=== PATIENT | male | born 1965 | race Caucasian/White ===

== ENCOUNTER → 2017-09-19 | Outpatient (CLI) | payer OTHER ==
[~2017-09-19] MED LIST: IOPAMIDOL (ISOVUE-370) 150 ML BTL IV ONE
== END ==
LOC: FIMAGING 09:28
PROVIDERS: ATTEND Internal Medicine Cardiovascular Disease
DX: I25.10 Atherosclerotic heart disease of native coronary artery without angina pectoris (principal); I71.2 Thoracic aortic aneurysm, without rupture
CPT/HCPCS: Q9967

== ENCOUNTER 2017-09-20 09:31 | Observation (INO) | payer OTHER ==
[2017-09-20] MEDS ORDERED: NITROGLYCERIN 2% 1 GM PACKET TP ONE (09:37)
[2017-09-20] MEDS ORDERED: ONDANSETRON 4 MG/2 ML VIAL IVP ONE (09:37)
[2017-09-20] MEDS ORDERED: ASPIRIN 81 MG CHEWABLE TAB PO ONE (09:37)
--- NOTE | 2017-09-20 09:37 | EDPHY ---
H & P Stated Complaint: cp x 1 week/work up by jordy yesterday Time Seen by Provider: 09/20/17 09:37 - Personal History Current Tetanus/Diphtheria Vaccine: Yes - Medical/Surgical History Hx Asthma: No Hx Chronic Respiratory Disease: No Hx Diabetes: No Hx Cardiac Disease: No Hx Renal Disease: No Hx Cirrhosis: No Hx Alcoholism: No Hx HIV/AIDS: No Hx Splenectomy or Spleen Trauma: No Other PMH: denies - Social History Smoking Status: Never smoked Constitutional: Initial Vital Signs Temperature (C) 37 C 09/20/17 09:32 Heart Rate 74 09/20/17 09:32 Respiratory Rate 18 09/20/17 09:32 Blood Pressure 138/101 H 09/20/17 09:32 O2 Sat (%) 95 09/20/17 09:32 O2 Delivery Mode Room Air Allergies/Adverse Reactions: No Known Allergies Allergy (Unverified 09/20/17 09:31) Home Medications: Medication Instructions Recorded Crestor 09/20/17 Metoprolol Succinate 09/20/17 Supplements 09/20/17 Medical Decision Making ED Course/Re-evaluation: CHIEF COMPLAINT: Chest pain HISTORY OF PRESENT ILLNESS: This patient is a 52 year old male complaining of chest pain. He was referred to the emergency department by his online advertising manager, Dr. Pope. The patient's chest pain has been ongoing for one week and is fairly constant but waxes and wanes. He was exercising last Monday and had to quit early which is unusual for him. He had a recent CTA with Dr. Pope which revealed considerable calcium buildup in the RCA and LAD. Plan to admit for cardiac catheterization. The patient's last PO at dinner last night. He had a cup of coffee this morning but no other food. He generally takes 2 81mg ASA, but not daily. Additionally the patient endorses recent weight loss of 50 lbs. He had chest pain in the past but this had not occurred since his weight loss. He denies fever, shortness of breath, vomiting, or other associated symptoms. REVIEW OF SYSTEMS: A 10 point review of systems was performed and is negative with the exception of the elements mentioned in the history of present illness. PHYSICAL EXAM: HR, BP, O2 Sat, RR. Temp noted General Appearance: Alert, well hydrated, appropriate, and non-toxic appearing. Head: Atraumatic without scalp tenderness or obvious injury Eyes: Pupils equal, round, reactive to light and accommodation, EOMI, no trauma , no injection. Ears: Clear bilaterally, no perforation, normal landmarks Nose: Atraumatic, no rhinorrhea, clear. Throat: There is no erythema or exudates, no lesions, normal tonsils, mucus membranes moist. Neck: Supple, 2+ carotid upstroke, nontender, no lymphadenopathy. Respiratory: No retractions, no distress, no wheezes, and no accessory muscle use. Lungs are clear to auscultation bilaterally. Cardiovascular: Regular rate and rhythm, no murmurs, rubs, or gallops. Bilateral carotid, radial, dorsalis pedis, and posterior tibial pulses intact. Good capillary refill all extremities. Gastrointestinal: Abdomen is soft, nontender, non-distended, no masses, no rebound, no guarding, no peritoneal signs. Musculoskeletal: Normal active ROM of all extremities, atraumatic. Neurological: Alert, appropriate, and interactive. The patient has normal DTRs and non-focal cranial nerves, motor, sensory, and cerebellar exam. Skin: No rashes, good turgor, no nodules on palpation. Past medical history: Denies. Past surgical history: Noncontributory Family history: Noncontributory Social history: . Lives in [place]. Does not abuse tobacco, drugs, or alcohol. DIAGNOSTICS/PROCEDURES/CRITICAL CARE TIME: The 12 lead EKG was interpreted by myself. See hard copy and/or "tracemaster" electronic copy for interpretation. DIFFERENTIAL DIAGNOSIS: The differential diagnosis for the patient's chest pain included but was not limited to myocardial ischemia, pulmonary embolus, chest wall pain, pleural inflammation, and pulmonary infectious causes. MEDICAL DECISION MAKIN52 y/o male presents with one week history of chest pain. Spoke with Dr. Pope prior to the patient's arrival. Reviewed CT angiography. Blockages present in RCA and LAD. Plan for EKG, labs including CBC, chemistries, troponin, BNP. Plan to administer 1" nitro paste, 325mg PO aspirin, and 4mg IV Zofran for symptom relief. 10:15 Troponin negative. WBC elevated at 18,000. 11:[address] Pope, online advertising manager. He will evaluate the patient at bedside and then transfer him to the laboratory assistant for outpatient cardiac catheterization. 11:[address] Pope, online advertising manager. Patient's EKG shows more prominent t- wave inversion than prior one day ago. Plan to admit for catheterization as above. - Data Points Laboratory Results: Laboratory Results 09/20/17 09:45 18 09:45 09/20/17 09/20/17 09:45 09:45 WBC 17.63 10^3/uL H 10^3/uL (3.80-9.50) RBC 5.14 10^6/uL 10^6/uL (4.40-6.38) Hgb 16.0 g/dL g/dL (13.7-17.5) Hct 45.5 % % (40.0-51.0) MCV 88.5 fL fL (81.5-99.8) MCH 31.1 pg pg (27.9-34.1) MCHC 35.2 g/dL g/dL (32.4-36.7) RDW 12.6 % % (11.5-15.2) Plt Count 318 10^3/uL 10^3/uL (150-400) MPV 10.6 fL fL (8.7-11.7) Neut % (Auto) 83.0 % H % (39.3-74.2) Lymph % (Auto) 9.9 % L % (15.0-45.0) [place] % (Auto) 6.5 % % (4.5-13.0) Eos % (Auto) 0.0 % L % (0.6-7.6) Baso % (Auto) 0.1 % L % (0.3-1.7) Nucleat RBC Rel Count 0.0 % % (0.0-0.2) Absolute Neuts (auto) 14.63 10^3/uL H 10^3/uL (1.70-6.50) Absolute Lymphs (auto) 1.75 10^3/uL 10^3/uL (1.00-3.00) Absolute Monos (auto) 1.14 10^3/uL H 10^3/uL (0.30-0.80) Absolute Eos (auto) 0.00 10^3/uL L 10^3/uL (0.03-0.40) Absolute Basos (auto) 0.02 10^3/uL 10^3/uL (0.02-0.10) Absolute Nucleated RBC 0.00 10^3/uL 10^3/uL (0-0.01) Immature Gran % 0.5 % % (0.0-1.1) Immature Gran # 0.09 10^3/uL 10^3/uL (0.00-0.10) Sodium 145 mEq/L mEq/L (135-145) Potassium 4.3 mEq/L mEq/L (3.3-5.0) Chloride 104 mEq/L mEq/L (97-110) Carbon Dioxide 23 mEq/l mEq/l (22-31) Anion Gap 18 mEq/L H mEq/L (8-16) BUN 22 mg/dL mg/dL (7-23) Creatinine 1.0 mg/dL mg/dL (0.7-1.3) Estimated GFR > 60 Glucose 116 mg/dL H mg/dL (70-100) Calcium 10.4 mg/dL mg/dL (8.5-10.4) Troponin I < 0.012 ng/mL ng/mL (0.000-0.034) NT-Pro-B Natriuret Pep 29 pg/mL pg/mL (0-125) Medications Given: Discontinued Medications Aspirin (Aspirin) 324 mg PO EDNOW ONE Stop: 09/20/17 09:38 Last Admin: 09/20/17 09:52 Dose: 324 mg Nitroglycerin (Nitro-Bid 2%) 1 inch TP EDNOW ONE Stop: 09/20/17 09:38 Last Admin: 09/20/17 09:53 Dose: 1 inch Ondansetron HCl (Zofran) 4 mg IVP EDNOW ONE Stop: 09/20/17 09:38 Last Admin: 09/20/17 09:52 Dose: 4 mg Departure - Departure Disposition: To OP Cath/Surgery Clinical Impression: Chest pain Qualifiers: Chest pain type: other chest pain Qualified Code(s): R07.89 - Other chest pain Condition: Fair Report Scribed for: Dani Espana Report Scribed by: Nuris Padilla Date of Report: 09/20/17 Time of Report: 11:22
--- NOTE | 2017-09-20 09:42 | CPEKG ---
Heart Rate: 72 RR Interval: 833 P-R Interval: 204 QRSD Interval: 100 QT Interval: 392 QTC Interval: 430 P [place]: 17 QRS [place]: -11 T Wave [place]: -21 EKG Severity - ABNORMAL ECG - EKG Impression: SINUS RHYTHM EKG Impression: NONSPECIFIC T ABNORMALITIES, INFERIOR LEADS Electronically Signed By: Dani Espana 20-Sep-2017 13:51:28
[2017-09-20 09:53] LABS: PLATELET COUNT 318 10^3/uL (150-400)
[2017-09-20] MEDS ORDERED: LIDOCAINE 1% 300 MG/30 ML SDV ONE (10:42)
[2017-09-20] MEDS ORDERED: fentaNYL 100 MCG/2 ML INJ ONE ×2 (10:43→11:54)
[2017-09-20] MEDS ORDERED: MIDAZOLAM 2 MG/2 ML VIAL ONE (10:43)
[2017-09-20] MEDS ORDERED: IOPAMIDOL (ISOVUE-370) 150 ML BTL IV ONE ×2 (10:43→12:35)
[2017-09-20] MEDS ORDERED: NITROGLYCERIN 1,500 MCG/15 ML VIAL MISC ONE ×2 (10:45→12:24)
[2017-09-20] MEDS ORDERED: TEMAZEPAM 15 MG CAP PO PRN ×2 (11:11→11:41)
[2017-09-20] MEDS ORDERED: diphenhydrAMINE 25 MG CAP PO ONE ×2 (11:11)
[2017-09-20] MEDS ORDERED: DIAZEPAM 5 MG TAB PO ONE ×2 (11:11)
[2017-09-20] MEDS ORDERED: ASPIRIN EC 325 MG TAB PO ONE ×2 (11:11)
[2017-09-20] MEDS ORDERED: NITROGLYCERIN 0.4 MG BTL SL PRN ×2 (11:11→11:41)
[2017-09-20] MEDS ORDERED: FAMOTIDINE 20 MG TAB PO ONE ×2 (11:11)
[2017-09-20] MEDS ORDERED: ACETAMINOPHEN 325 MG TAB PO PRN ×2 (11:11→11:41)
[2017-09-20 11:35] LABS: INR 0.94 (0.83-1.16); PROTIME(PATIENT) 12.8 SEC (12.0-15.0)
--- NOTE | 2017-09-20 11:41 | PDHPUP ---
History & Physical Update H&P update statement: This history and physical update is based on an assessment of the patient which was completed after admission or registration (within 24 hours), but prior to the surgery/procedure. H&P update: H&P reviewed & patient examined, no change in patient's condition since H&P completed
--- NOTE | 2017-09-20 11:42 | PDPROPOC ---
Sedation Plan of Care Sedation Plan of Care: vital signs stable, mental status noted, patient educated of risks, benefits, alternatives, patient can tolerate sedation ASA Classification: ASA 3 Planned drugs: fentanyl, midazolam, other (etomidate) Mallampati Score: Class 3 Mallampati Reference Image: Patient passed 3-3-2 rule?: Yes
--- NOTE | 2017-09-20 11:44 | PDHPUP ---
History & Physical Update H&P update statement: This history and physical update is based on an assessment of the patient which was completed after admission or registration (within 24 hours), but prior to the surgery/procedure. H&P update: changes noted (Patient presented to ED with Nitroglycerin responsive chest pain and more prominent T wave inversions inferiorly. Needs cardiac cath given CCS Class IV angina...)
[2017-09-20] MEDS ORDERED: ETOMIDATE 40 MG/20 ML INJ ONE (11:56)
--- NOTE | 2017-09-20 12:09 | PDDXCAT ---
Diagnostic Cath Note - . Date: 09/20/17 Band Instrument Maker: Niko Indication: CCC Class III and IV angina on medical treatment - Procedure Access: right groin Procedure: left heart catheterization, coronary angiography, left ventriculogram - Materials Left Heart Cath size: 6F Left Heart Cath materials: standard multipack (JL4, JR4, pigtail) - Findings-Left Heart Catheterization LM: The LM is 6 mm in size. It trifurcates into an LAD, Ramus and Circumflex system. LAD: There is a 40%-50% stenosis by QCA at the level of the second an bifurcating diagonal. LCX: The LCX is 3mm in size and gives rise to OM. It is a Codominant vessel giving rise to the PDA. RCA: There is a blockage in the distal lesion of the RCA. It was graded to be a 92% lesion by QCA. Ramus: It is a 2.5 mm in sizez. There is a 50% stenosis near its takeoff of the left main. EDP: The LVEDP is 25 mmHg. LVEF: The EF is 65%. Wall motion: On the LV gram there is normal LV systolic function. The EF is 65% . There are no resting segmental wall motion abnormalities. The visualized portion of the thoracic aortic valve reveals three sinuses of valsalva most consistent with a trileaflet valve. There is no gradient on pullback across the aortic valve. There is no evidence of milad dissection or aneurysm formation. Complications: NONE. Estimated blood loss: <50ml Assessment: The patient has moderately severe [place] vessel coronary disease with flow limiting obstruction of the distal RCA, which was subsequently repaired with a Drug Eluting Stent. Plan: Dual antiplatelet therapy with Aspirin 325mg for the first month followed by Aspirin 81mg along with Effient 10mg daily should be continued for at least 1 year following drug eluting stent implantation. No elective surgery for the first 3 months. Decisions to stop dual antiplatelet therapy before 1 year should involve our office at [facility]. [phone]. The patient has developed progressive CAD and flow limiting stenosis in spite of max dose statin with Rosuvastatin 40mg as well lifestyle modification which has resulted in 50 pound weight loss. The patient would be a good candidate for PCSK-9 inhibitors to prevent plaque progression. Intervention: A 6 [place] JR4 was used for guide catheter support. A 0.014 Intuition wire was advanced across the lesion in the distal RCA under direct fluoroscopic and angiographic guidance. The 92% lesion of the RCA was predilated with a 2.5 x 15 Emerge balloon. The lesion was secondarily stented with Synergy 3.0 x 32 mm Drug Eluting Stent. 3.25 x 15 NC Emerge balloon was used to post-dilate the vessel. The post stent residual stenosis was 10%. There was JLUIS III flow pre and post stent implantation. Patient Problems: Problems Problem Status Onset Chest pain Acute
[2017-09-20] MEDS ORDERED: ATROPINE SULFATE 1 MG/10 ML SYR ONE (12:12)
[2017-09-20] MEDS ORDERED: EPINEPHrine 1 MG/10 ML SYR IVP ONE (12:12)
[2017-09-20] MEDS ORDERED: BIVALIRUDIN 250 MG/5 ML VIAL IV ONE (12:13)
[2017-09-20] MEDS ORDERED: PRASUGREL HCL 10 MG TAB ONE (12:44)
[2017-09-20] MEDS ORDERED: ONDANSETRON 4 MG/2 ML VIAL IVP PRN (13:04)
[2017-09-20] MEDS ORDERED: ATROPINE SULFATE 1 MG/10 ML SYR IVP PRN (13:04)
[2017-09-20] MEDS ORDERED: PRASUGREL HCL 10 MG TAB PO ONE (13:04)
[2017-09-20] MEDS ORDERED: OXYCODONE/APAP 5/325 TAB PO PRN (13:04)
[2017-09-20] MEDS ORDERED: LORazepam 2 MG/ML INJ IVP PRN (13:04)
[2017-09-20] MEDS ORDERED: NS 1,000 ML IV SCH (13:15)
--- NOTE | 2017-09-20 13:35 | CPEKG ---
Heart Rate: 61 RR Interval: 984 P-R Interval: 208 QRSD Interval: 98 QT Interval: 412 QTC Interval: 415 P [place]: 32 QRS [place]: 2 T Wave [place]: -21 EKG Severity - BORDERLINE ECG - EKG Impression: SINUS RHYTHM EKG Impression: BORDERLINE T ABNORMALITIES, INFERIOR LEADS Electronically Signed By: Fred Grijalva 21-Sep-2017 08:32:02
[2017-09-21 04:55] LABS: PLATELET COUNT 257 10^3/uL (150-400)
--- NOTE | 2017-09-21 08:54 | CPEKG ---
Heart Rate: 63 RR Interval: 952 P-R Interval: 212 QRSD Interval: 100 QT Interval: 404 QTC Interval: 414 P [place]: 10 QRS [place]: -2 T Wave [place]: -10 EKG Severity - ABNORMAL ECG - EKG Impression: SINUS RHYTHM EKG Impression: FIRST DEGREE AV BLOCK EKG Impression: BORDERLINE T ABNORMALITIES, INFERIOR LEADS Electronically Signed By: Fred Grijalva 22-Sep-2017 07:38:36
[2017-09-21] MEDS ORDERED: PRASUGREL HCL 10 MG TAB PO SCH (09:00)
[2017-09-21] MEDS ORDERED: ASPIRIN EC 325 MG TAB PO SCH (09:00)
[2017-09-21 12:15] VITALS: BP 130/91
--- NOTE | 2017-09-21 12:21 | GDS ---
[f rep st] DISCHARGE SUMMARY ADMITTING DIAGNOSES: 1. Unstable angina pectoris. 2. Coronary artery disease. 3. Dyslipidemia. 4. Hypertension. 5. Elevated fasting blood glucose. DISCHARGE DIAGNOSES: 1. Coronary artery disease status post percutaneous transluminal coronary angioplasty and stent plac ement of the right coronary artery with a Synergy drug-eluting stent. 2. Hypertension. 3. Dyslipidemia. 4. Elevated fasting blood glucose, resolved. HISTORY OF PRESENT ILLNESS: For a detailed history of present illness, please see the recently dicta phil Rose. Briefly, the patient has a history of coronary disease on the basis of a positive calci um score, as well as dyslipidemia that has been relatively difficult to manage in spite of maximum do sed rosuvastatin and very aggressive lifestyle changes, along with diet and exercise that has resulte d in a weight loss of approximately 50 pounds over the last 6 months. Over the prior weekend, he dev eloped chest pressure and tightness that was unusual and associated with exercise, going away with re st, typical of angina. He ultimately underwent a CT angiogram of his coronaries which documented mul tiple high-grade lesions within the distal right coronary artery, as well as moderately obstructive d isease of the LAD circulation. For this reason, the patient was informed of these findings. He had recurrent chest discomfort on the morning of 09/21 and presented to the emergency department. His EK G did show more significant T-wave inversions in lead III and AVF, suggestive of possible ischemia. For this reason, the patient was taken for definitive angiography from a right groin approach. HOSPITAL COURSE: The patient was admitted, underwent successful angiography documenting a 90% obstru ction of the right coronary artery with a 10% residual status post PTCA and stent placement with a dr ug-eluting stent. Patient was monitored overnight and had no cardiac dysrhythmia. On the morning of his discharge from the hospital, the patient's blood pressure is 112/72, his pulse is 70 and regular , respirations 16 and unlabored, his oxygen saturation is 95% on room air. His heart reveals normal S1 and S2 without S3, S4. Lungs are clear to auscultation bilaterally, and the groin is pristine wit hout evidence of hematoma or bruising. The distal pulses are intact. The patient is to be discharge d in good and stable condition on a low saturated fat, low sugar, and low-salt diet. His activities will be restricted by standard groin precautions. He is to avoid lifting anything over 10-15 pounds. He is to avoid exercise. Anything to get red in the face, hot or sweaty should be avoided for the next 7 to 10 days until the groin site is completely healed up. His medications are to include aspir in 325 mg for the next month, followed by 81 mg indefinitely, along with Effient 10 mg. dual antipla telet therapy should be continued for at least 1 year post stent implantation. He is to remain on ro suvastatin at a dose of 40 mg daily, and I have added metoprolol succinate which is long-acting beta maddie at 25 mg daily to help control his blood pressure. The patient understands his discharge ins tructions and is willing to be discharged home. His was also present at the time of the dischar ge instructions. I spent less than 30 minutes with the patient explaining all of our discharge plans and his plans for followup. He will see me in followup in approximately 10-14 days. He knows to report promptly to [facility] emergency department should he experience chest discomfort, pressure, tightness, groin pain, bleed ing, or other complications. /[id number]/MODL
[2017-09-21] MEDS ORDERED: ROSUVASTATIN CALCIUM 40 MG TAB PO SCH (21:00)
[2017-09-22] MEDS ORDERED: OMEGA-3 FATTY ACIDS 1,000 MG CAP PO SCH (09:00)
[2017-09-22] MEDS ORDERED: METOPROLOL SUCCINATE XR 25 MG TAB PO SCH (09:00)
== END 2017-09-21 13:15 | disposition home or self-care (01) ==
LOC: FCATH 11:35 → F2W 13:05
PROVIDERS: ADMIT Internal Medicine Cardiovascular Disease; ATTEND Internal Medicine Cardiovascular Disease
DX: I25.119 Atherosclerotic heart disease of native coronary artery with unspecified angina pectoris (principal); I10 Essential (primary) hypertension; E78.5 Hyperlipidemia, unspecified
CPT/HCPCS: 92928; 93005; 93458; 96374; 99285; C1725; C1769; C1887; G0378; C1760; C1874; C9600; J0461; J0583; J1200; J1644; J2250; J2405; J3010; Q9967